=== PATIENT | female | born 1985 | race Caucasian/White ===

== ENCOUNTER 2023-12-18 13:48 | Emergency (ER) | payer BC, MEDICAID ==
[~2023-12-18] VITALS: Ht 160 cm; Wt 60.0 kg
[2023-12-18 13:50] VITALS: BP 112/91; PULSE 91; RESP 20; TEMP 98.3; O2SAT 98
[2023-12-18] MEDS ORDERED: CYCL10TA21 MT (14:07)
== END 2023-12-18 14:00 | disposition home or self-care (01) ==
LOC: ER 13:48
DX: M79.602 Pain in left arm (principal); M54.10 Radiculopathy, site unspecified; I25.2 Old myocardial infarction; Z88.6 Allergy status to analgesic agent
CPT/HCPCS: 93005; 99283